=== PATIENT | female | born 1960 | race Caucasian/White ===

== ENCOUNTER → 2016-10-20 | Outpatient (CLI) | payer OTHER ==
--- NOTE | ~2016-10-20 | MY11 ---
[facility] A Service of [facility] [place] RADIOLOGY TEXT RESULTS PATIENT: NASIR DE LOS SANTOS LOCATION: [facility] : 58 UNIT #: [id number] AGE: [address]: Colette Parker APRN SEX: F ORDER DR: [id number] [facility] [address] [place], [place] [address] [id number] O MR#: [id number] Acc #: [id number] NAME: NASIR DE LOS SANTOS : 1960 SEX: F STUDY DATE/TIME: 10/20/2016 9:25 UNIT: [facility] ROOM: STUDY DESCRIPTION: MY Mammogram Screening Dig [place] Attending Physician: Colette Parker A.P.R.N. Referring Physician: Colette Parker A.P.R.N. Ordering Physician: Colette Parker A.P.R.N. Primary Care Physician: Colette Parker A.P.R.N. MEDICAL IMAGING REPORT This report is preliminary unless electronic signature is present EXAM Digital screening mammogram 10/20/2016 HISTORY 56-year-old woman. No risk elevation. Annual screen. COMPARISON 10/18/2008, 01/02/2010, and 03/26/2011. FINDINGS Digital imaging of each breast was completed utilizing screening protocol. Review includes FDA-approved CAD device. Breast parenchyma is fatty-replaced. Occasional lipoid cyst noted in the right breast. There is no interval-occurring breast mass. There are no suspicious microcalcifications and no architectural deformity. IMPRESSION Negative mammogram. Annual screening recommended. Patient's over the age of 40 are entered into a reminder system with target due date for the next mammogram. BIRADS: 1 Negative Dictated by... Fabio Santos M.D. THIS IS AN ELECTRONICALLY VERIFIED REPORT Fabio Santos M.D. at 10/20/2016 3:20 PM CATHRYN/rajani TD: 10/20/2016 15:02 [facility] A Service of [facility] [place] RADIOLOGY TEXT RESULTS PATIENT: NASIR DE LOS SANTOS LOCATION: [facility] #: [id number] : 58 UNIT #: [id number] AGE: [address]: Colette Parker APRN SEX: F ORDER DR: NATALIE #: [id number] MEDICAL IMAGING REPORT Page 1 of 1 COPY
== END | disposition home or self-care (01) ==
LOC: CWCC 10-02 16:45
DX: Z12.31 Encounter for screening mammogram for malignant neoplasm of breast (principal)
CPT/HCPCS: G0202